=== PATIENT | male | born 1990 | race Caucasian/White ===

== ENCOUNTER 2016-10-05 12:11 | Emergency (ER) | payer BC ==
[2016-10-05 12:23] VITALS: BP 136/72; PULSE 76; RESP 16; TEMP 98.3
--- NOTE | 2016-10-05 12:39 | ED ---
ENT HPI - General Chief complaint: Dental/Oral Stated complaint: Tooth Ache Time Seen by Provider: 10/05/16 12:25 Source: patient, RN notes reviewed Mode of arrival: ambulatory Limitations: no limitations - History of Present Illness Initial comments: 26-year-old male presents to the ER with what he believes is a tooth abscess. He states that over the past 2 and half years has had multiple abscesses on and off on both sides however usually on the bottom. He states that he noticed increased swelling and pain starting on Thursday. He did take a Motrin at 10:30 this morning and states that he does feel like it kicked in within the past 20 minutes. He states that he has never had one surgically drained however he did have one rupture while on the way to the dentist. He states that in the past they've all been controlled with oral antibiotics. He states that he currently does not have a dentist however was given a card to see one from a coworker. Patient denies any difficulty swallowing, drooling, fever, nausea, vomiting, diarrhea. He states that he did have a headache yesterday. Denies any blurry vision or visual disturbances. - Related Data Previous Rx's Medication Instructions Recorded Clindamycin HCl [Cleocin] 300 mg PO Q6HR #28 cap 10/05/16 Ibuprofen [Motrin] 800 mg PO Q8HR PRN #20 tab 10/05/16 Allergies Allergy/AdvReac Type Severity Reaction Status Date / Time Penicillins Allergy Rash/Hives Verified 10/05/16 12:23 Review of Systems ROS Statement: Those systems with pertinent positive or pertinent negative responses have been documented in the HPI. ROS Other: All systems not noted in ROS Statement are negative. Past Medical History Past Medical History: No Reported History Additional Past Medical History / Comment(s): (L) leg fx History of Any Multi-Drug Resistant Organisms: None Reported Past Surgical History: No Surgical Hx Reported Past Psychological History: No Psychological Hx Reported Smoking Status: Current every day smoker Past Alcohol Use History: None Reported Past Drug Use History: None Reported General Exam Limitations: no limitations General appearance: alert, other (Patient appears to be in mild discomfort) Head exam: Present: atraumatic, other (Localized swelling right lower chin) Eye exam: Present: normal appearance, PERRL, EOMI Pupils: Present: normal accommodation ENT exam: Present: mucous membranes moist, normal external ear exam, other ( Moderate to severe bilateral tooth decay, localized edema right lower buccal surface. No maxillary tenderness. No tongue elevation, no tonsillar swelling, no drooling.) Neck exam: Present: normal inspection, other (No lymphadenopathy) Respiratory exam: Present: normal lung sounds bilaterally Cardiovascular Exam: Present: regular rate, normal rhythm Neurological exam: Present: alert, oriented X3, CN II-XII intact Psychiatric exam: Present: normal affect, normal mood Course Vital Signs 10/05/16 12:19 Temperature 98.3 F Pulse Rate 76 Respiratory 16 Rate Blood Pressure 136/72 O2 Sat by Pulse 99 Oximetry Medical Decision Making - Medical Decision Making 26 year male presented to the ER with swelling in the right jaw/chin. Patient has long-standing history of oral infections secondary to moderate to severe tooth decay bilaterally. Patient is overall healthy not immunocompromised. Due to good response to oral antibiotics in the past will recommend starting oral antibiotics today. Was given a loading dose of 600 mg of clindamycin in the ER today and he is to follow this with 300 mg clindamycin 4 times daily for 1 week. He is also to follow-up with a dentist this week he hasn't name of a dentist will also write on Dr. Dominguez oral surgery on-call. We'll also give patient Motrin 800 to take up to 3 times daily. Warned patient of GI upset with both these medications and is to take cautiously. Return to the ER if symptoms of drooling, tongue lifting, and inability to swallow as well as with severe constitutional symptoms. All questions were answered. Disposition Clinical Impression: Gingival abscess, Dental caries Disposition: HOME SELF-CARE Condition: Good Instructions: Dental Abscess (ED) Additional Instructions: Patient to follow up with a dentist this week. To return to the ER with warning symptoms discussed. Prescriptions: Clindamycin HCl [Cleocin] 300 mg PO Q6HR #28 cap Ibuprofen [Motrin] 800 mg PO Q8HR PRN #20 tab PRN Reason: Pain Referrals: Stormy Montoya MD [STAFF PHYSICIAN] - 1-2 days Vinny Dominguez DDS [STAFF PHYSICIAN] - 1-2 days Time of Disposition: 13:00
[2016-10-05] MEDS ORDERED: CLINDAMYCIN 150 MG CAP PO STA (12:40)
== END 2016-10-05 13:30 | disposition home or self-care (01) ==
LOC: EC 12:11
DX: K02.9 Dental caries, unspecified (principal); K05.219 Aggressive periodontitis, localized, unspecified severity; F17.200 Nicotine dependence, unspecified, uncomplicated; Z88.0 Allergy status to penicillin
CPT/HCPCS: 99282